=== PATIENT | female | born 1945 | race Caucasian/White ===

== ENCOUNTER 2019-07-16 18:44 | Inpatient (IN) ==
--- NOTE | 2019-07-16 20:54 | Gastroenterology Consult Note ---
Date of Encounter: 07/16/19 Time of Encounter: 20:30 - Assessment and plan (1) Dysphagia Current Visit: Yes Status: Acute Assessment and plan: For foreign body acted high up in the cervical esophagus per CT scan at [facility]. I requested Ear, Nose and Throat surgery to be available at the time of endoscopy and this was arranged. This will be done under general anesthesia. The patient is anticoagulated with dual antiplatelets - Aspirin and Plavix which will add a significant risk of bleeding. Qualifiers: Dysphagia type: oropharyngeal phase Qualified Code(s): R13.12 - Dysphagia, oropharyngeal phase (2) UTI (urinary tract infection) Current Visit: No Status: Acute Qualifiers: Urinary tract infection type: catheter-associated UTI Indwelling urinary catheter type: unspecified Encounter type: initial encounter Qualified Code(s): T83.511A - Infection and inflammatory reaction due to indwelling urethral catheter, initial encounter; N39.0 - Urinary tract infection, site not specified (3) CHF (congestive heart failure) Current Visit: No Status: Chronic Qualifiers: Heart failure type: unspecified Heart failure chronicity: unspecified Qualified Code(s): I50.9 - Heart failure, unspecified (4) Diabetes Current Visit: No Status: Chronic Qualifiers: Diabetes mellitus type: type 2 Diabetes mellitus mcc insulin use: without mcc use Diabetes mellitus complication detail: with chronic kidney disease Chronic kidney disease stage: unspecified stage Qualified Code(s): E11.22 - Type 2 diabetes mellitus with diabetic chronic kidney disease (5) HTN (hypertension), benign Current Visit: No Status: Chronic (6) History of CVA (cerebrovascular accident) Current Visit: No Status: Chronic - Time Spent With Patient Total time spent is greater than 50% in coordination of care (as documented) at patient's floor/unit and/or counseling patient: Greater than 35 minutes GI History of Present Illness - Data of Consult Consult date: 07/16/19 Requesting Physician: Fidel Barrios - Consult Narrative Reason for consult: Acute dysphagia, foreign body in cervical esophagus History of present illness: Ms. Penny is a 73 year old female was transferred from [facility] this evening with acute dysphagia secondary to a foreign body high up in the cervical esophagus just below the cricoid cartilage level as seen on CT scan done at that hospital. Patient was in your patient's been complaining of some degree of dysphagia for the past several months but has never had an endoscopy to date and she had a stroke about 3 years ago with him with with weakness of her right side and right upper extremity and right lower extremity. She has been anticoagulated with a combination of Plavix and aspirin since she had a stent placed several years ago. His history of syncope or chest pain or shortness of breath at this time is no history of any melena or hematochezia K0 or hematemesis her son Travis Sandoval [phone] apparently is unaware that patient hospital I tried to contact him but events with a voicemail is apparently at at work according to his mother. Left a message for him to call me through the paging service Patient's past surgical history significant for from cholecystectomy and appendicectomy and a hysterectomy some years ago this study was for dysfunctional uterine bleeding apparently. She also has a a mildly protuberant umbilicus when asked about her liver she did not have much to say except that she told everything was okay. Past Med Surg Social Fam HX - Past Medical History Medical history: asthma, CHF, COPD, CVA, diabetes, hyperlipidemia, hypertension - Past Surgical History Surgical History: non-contributory - Social History Smoking Status: Former smoker Packs per day: 2 ppd till 20 years ago Smokeless Tobacco Status: No Alcohol use: none Drug use: none Occupational status: retired Current living situation: Home - Independent Recent Out of Country Travel Within the Last 8 Weeks: No Exposure or Possible Exposure to Illness During Travel: No - Gastrointestinal NSAID use: Yes Aspirin 81 mg daily Anticoagulation Use: Yes Plavix and Aspirin Additional Comments: Dysphagia - Constitutional Vitals: Temp Pulse Resp BP Pulse Ox 98.1 F 66 15 110/61 98 07/16/19 20:41 07/16/19 20:41 07/16/19 20:41 07/16/19 20:41 07/16/19 20:41 - Head Head exam: Present: atraumatic, normal inspection, normocephalic - Eye Eye exam: Present: EOMI, PERRL - Neck Neck exam general surgery: Present: full ROM, supple, trachea midline - Respiratory Respiratory exam: Present: CTAB - Cardiovascular Cardiovascular exam: Present: +S1, +S2 - GI/Abdominal Additional comments: Portuberant umbilicus - Rectal Rectal exam: Present: deferred - Extremities Exam Additional comments: Weaknessin Right upper and lower extremity Consult Discharge Plan - Plan Referrals: Keyon Arredondo MD [Primary Care Provider] -
--- NOTE | 2019-07-16 22:21 | Anesthesia Evaluation PreOp ---
Date of Encounter: 07/16/19 Time of Encounter: 22:19 - Past History Planned Operation: EGD, Foreign Body Removal Cardiac History: CHF, HTN, Hyperlipidemia, Cardiac Stent Pulmonary History: Former smoker (quit 20 years ago), Asthma, COPD, Snore QUART[employer]ING History: CVA (residual right weakness) Other Medical History: Diabetes Type II, Thyroid, GERD, Other (depression, fibromyalgia) Anesthesia History: No Prior Anesthetic Complications, Past Anesthesia Alcohol Use: none Drug use: none Medications and Allergies Acetaminophen [Non-Aspirin] 650 mg PO Q4H PRN 10/09/18 [History] Albuterol Sulfate [Ventolin Hfa] 2 puff PO Q6H PRN 10/09/18 [History] Aspirin [Adult Aspirin Regimen] 81 mg PO DAILY 10/09/18 [History] Atorvastatin [Lipitor] 40 mg PO HS 10/09/18 [History] Benzocaine/Menthol [Cepacol Sore Throat Lozenge] 1 lozenge PO Q4H PRN 10/09/18 [History] Citalopram Hydrobromide [Citalopram HBr] 20 mg PO DAILY 10/09/18 [History] Clopidogrel [Plavix] 75 mg PO DAILY 10/09/18 [History] Docusate [Colace] 100 mg PO DAILY 10/09/18 [History] Ezetimibe [Zetia] 10 mg PO DAILY 10/09/18 [History] Magnesium Hydroxide [Milk of Magnesia] 30 ml PO DAILY PRN 10/09/18 [History] Mometasone Furoate [Elocon] 1 appl TP BID PRN 10/09/18 [History] Na Phos,M-B/Na Phos,Di-Ba [Fleet Enema Extra] 230 ml RC ONCE PRN 10/09/18 [History] Tizanidine HCl 4 mg PO Q8H PRN 10/09/18 [History] cloNIDine HCl [Clonidine HCl] 0.2 mg PO BID 10/09/18 [History] diphenhydrAMINE HCl [Sleep Aid] 25 mg PO HS 10/09/18 [History] diphenhydrAMINE HCl [Sleep Aid] 25 mg PO Q4H PRN 10/09/18 [History] raNITIdine HCl [Zantac 75] 75 mg PO BID 10/09/18 [History] Triamcinolone Acet 0.1% OINT [Kenalog] 1 appl TP TID PRN tube 10/11/18 [Rx] Allergy/AdvReac Type Severity Reaction Status Date / Time oxycodone [Oxycodone] Allergy Itching Verified 04/24/19 15:53 Sulfa (Sulfonamide Allergy Itching Verified 04/24/19 15:53 Antibiotics) - Meds/Allergy Pre-op Review Medications Reviewed: Yes Allergies Reviewed: Yes Beta Blockers on Current Med List: No Anesthesia Results - Labs 07/16/2019 from Tomasa Zamarripa Na 137 K 4.6 BUN 22 Cr 1.28 WBC 23.5 Hgb 8.6 Hct 29.1 Plt 459 - Imaging EKG: report reviewed (04/24/2019 SINUS RHYTHM RIGHT BUNDLE BRANCH BLOCK [120+ ms QRS DURATION, UPRIGHT V1, 40+ ms S IN I/aVL/V4/V5/V6]) Anesthesia Exam Vital Signs/O2 Sat/Glucose, Most Recent Temp Pulse Resp BP Pulse Ox 98.1 F 67 18 128/84 100 07/16/19 20:41 07/16/19 21:25 07/16/19 21:25 07/16/19 21:25 07/16/19 21:25 Blood Glucose* 127 Height: 5'2''/1.57m Weight: 212 lbs/96.6 kg NPO (# of Hours): 8 Pain Scale: 0 Pain Scale Used: Numeric (1 - 10) - HEENT Pupil (Motor): EOMI Mallampati: II Teeth: Edentulous Oral Opening: Greater than 3 - QU[employer]Z [employer]ING LOC: Oriented QU[employer]ING Motor: Normal LUE, Normal LLE, Normal Face, Deficit RUE, Deficit RLE [employer]ING Sensory: Normal: RUE, LUE, RLE, LLE, Face - Cardiac Rhythm: Regular Murmur: Systolic - Pulmonary Breath Sounds: bilateral Clear Respiratory Effort: Symmetrical Anesthesia Assess/Plan ASA Score: 4 Level of consciousness: Cooperative, Oriented, Tranquil Anesthetic Plan: General Monitoring Plan: Standard Monitors Recovery Plan: PACU
[2019-07-16] MEDS ORDERED: Naloxone 0.4 MG/ML INJ IVP PRN (22:54)
[2019-07-16] MEDS ORDERED: *HR* Succinylcholine 200 MG/10 ML VIAL IVP ONE (23:07)
[2019-07-16] MEDS ORDERED: Lidocaine -MPF 2% 2 ML VIAL ONE (23:07)
[2019-07-16] MEDS ORDERED: *HR* Etomidate 40 MG/20 ML VIAL IVP ONE (23:07)
[2019-07-16] MEDS ORDERED: *HR* FentaNYL (PF) 100 MCG/2 ML VIAL ONE (23:07)
[2019-07-16] MEDS ORDERED: *HR* PHENYLEPHRINE 1,000 MCG/10 ML SYRINGE IVP ONE (23:10)
[2019-07-16] MEDS ORDERED: 0.9 % Sodium Chloride 1,000 ML IVC SCH (23:15)
--- NOTE | 2019-07-16 23:18 | Internal Med History&Physical ---
Date of Encounter: 07/16/19 Time of Encounter: 23:14 Internal Medicine - H&P: HPI Chief complaint: Dysphagia History of present illness: Ms. Penny is a 73 year old female with a past medical history of COPD on 3 L nasal cannula, hypertension, CHF, type 2 diabetes and history of CVA with residual right-sided deficits who initially presented to [facility] due to concern of food stuck in her throat. Patient states that around lunch she was eating a potato, took a large bright which felt like it got stuck in her throat. Patient reports prior history to of dysphagia following her stroke 2 years ago. She says that she has had a swallow evaluation done and was placed on nectar thickened liquids but could not tolerate certain liquids and this form, especially coffee. Patient currently denies any chest pain, shortness of breath, nausea or vomiting. No reports of fever, cough or chills. On arrival patient was afebrile, hemodynamically stable saturating 100% on 3 L. Did not appear to be in any acute distress. No evidence of stridor on examination. Laboratory workup notable for a leukocytosis of 18 and anemia which appears to be chronic. CT of the soft tissues of the neck performed at [facility] concerning for findings of food impaction within the esophagus and trachea. Dr. Rowland was at bedside during my assessment. He plans to take the patient down for endoscopy tonight with coordination with ENT and pulmonology. Past Med Surg Social Fam HX - Past Medical History Medical history: asthma, CHF, COPD, CVA, diabetes, hyperlipidemia, hypertension - Past Surgical History Surgical History: non-contributory - Social History Smoking Status: Former smoker Packs per day: 2 ppd till 20 years ago Smokeless Tobacco Status: No Alcohol use: none Drug use: none - Family History Mother Hx Family Cancer: Yes (stomach, liver, pancreas) Father Hx Family Cardiac Disorders: Yes (heart failure) Sister Hx Family Cancer: Yes (lung) Brother Hx Family Cancer: Yes (lung) Internal Medicine - H&P: Meds Acetaminophen [Non-Aspirin] 650 mg PO Q4H PRN 10/09/18 [History] Albuterol Sulfate [Ventolin Hfa] 2 puff PO Q6H PRN 10/09/18 [History] Atorvastatin [Lipitor] 40 mg PO 199910/09/18 [History] Citalopram Hydrobromide [Citalopram HBr] 20 mg PO 0800 10/09/18 [History] Clopidogrel [Plavix] 75 mg PO 0800 10/09/18 [History] Docusate [Colace] 100 mg PO 0800 10/09/18 [History] Ezetimibe [Zetia] 10 mg PO 0800 10/09/18 [History] Mometasone Furoate [Elocon] 1 appl TP BID PRN 10/09/18 [History] Tizanidine HCl 4 mg PO Q8H PRN 10/09/18 [History] cloNIDine HCl [Clonidine HCl] 0.2 mg PO 0800,199910/09/18 [History] diphenhydrAMINE HCl [Sleep Aid] 25 mg PO Q6H PRN 10/09/18 [History] ALPRAZolam [Xanax 0.25 MG Tablet] 0.25 mg PO 0800,199907/17/19 [History] Ascorbate Calcium [Vitamin C] 500 mg PO 0800,1700 07/17/19 [History] Furosemide [Lasix] 20 mg PO 0800 07/17/19 [History] Insulin Glargine,Hum.rec.anlog [Basaglar Kwikpen U-100] 20 unit SQ BID 07/17/19 [History] Insulin LISPRO [HumaLOG] 0 - 12 unit SQ ACHS 07/17/19 [History] Ipratropium/Albuterol Sulfate [Iprat-Albut 0.5-3(2.5) mg/3 ml] 3 ml IH 0800,1200,199907/17/19 [History] Ipratropium/Albuterol Sulfate [Iprat-Albut 0.5-3(2.5) mg/3 ml] 3 ml IH BID PRN 07/17/19 [History] Levocetirizine Dihydrochloride [Allergy Relief (Xyzal)] 2.5 mg PO 0800 07/17/19 [History] Levothyroxine Sodium 125 mcg PO 0607/17/19 [History] Lisinopril [Zestril] 20 mg PO 0800,199907/17/19 [History] Melatonin 5 mg PO 199907/17/19 [History] NIFEdipine XL (24 HR) [Procardia XL] 30 mg PO 0800 07/17/19 [History] Nitroglycerin [Nitrostat] 0.4 mg SL AD PRN 07/17/19 [History] Ondansetron HCl [Zofran] 4 mg PO Q6H PRN 07/17/19 [History] Oxybutynin Chloride [Oxybutynin Chloride ER] 10 mg PO 0800 07/17/19 [History] Polyethylene Glycol 3350 [MiraLAX] 17 gm PO 0807/17/19 [History] Polyvinyl Alcohol [Artificial Tears] 2 drop OP 0800,199907/17/19 [History] Potassium Chloride [Klor-Con 10] 10 meq PO Q48H 07/17/19 [History] Pregabalin [Lyrica] 25 mg PO 0800,199907/17/19 [History] Ranitidine HCl [Acid Proc Tech] 150 mg PO 0800,199907/17/19 [History] Sennosides/Docusate Sodium [Senna-S Tablet] 1 tab PO 08,199907/17/19 [History] Thiamine (B-1) [Vitamin B-1] 100 mg PO 0800 07/17/19 [History] hydrALAZINE [HydrALAZINE] 10 mg PO 0800,1200,1600 07/17/19 [History] Allergy/AdvReac Type Severity Reaction Status Date / Time oxycodone [Oxycodone] Allergy Itching Verified 04/24/19 15:53 Sulfa (Sulfonamide Allergy Itching Verified 04/24/19 15:53 Antibiotics) All Systems PM: A 10-system review of systems was performed and is negative for pertinent findings except as documented above in the HPI. - Constitutional Constitutional: no chills, no fever(s), no night sweats - EENT Eyes: no change in vision, no discharge, no pain, no photophobia Ears: no ear discharge, no ear pain, no tinnitus Nose, mouth and throat: no dysphagia, no nasal discharge, no neck pain, no sore throat - Cardiovascular Cardiovascular ROS IM: no chest pain, no diaphoresis, no dyspnea, no lightheadedness, no palpitations, no syncope - Respiratory Respiratory: no cough, no dyspnea, no wheezing, no excessive phlegm production - Gastrointestinal Gastrointestinal: no abdominal pain, no diarrhea, no hematemesis, no hematochezia, no melena, no nausea, no vomiting - Genitourinary Genitourinary: no change in urinary stream, no dysuria, no flank pain, no hematuria - Musculoskeletal Musculoskeletal ROS IM: no numbness, no tingling - Integumentary Integumentary IM: no rash, no unusual bruising - Neurological Neurological ROS: no confusion, no convulsions, no focal weakness, no numbness, no tingling, no tremor(s) - Hematologic/Lymphatic Hematologic/Lymphatic: no easy bruising - Constitutional Vitals: Temp Pulse Resp BP Pulse Ox 98.1 F 67 18 128/84 100 07/16/19 20:41 07/16/19 21:25 07/16/19 21:25 07/16/19 21:25 07/16/19 21:25 Exam: General: Alert and oriented 3 Skin:Normal color, no rash, no lesions. HEENT:EOM, pupils equal, round and reactive. Cardiovascular:Normal S1 & S2, no rubs, murmurs or gallops. No JVD. Pulse regular. Lungs:Normal breath sounds, no wheezes or crackles. Abdomen:Soft, non-tender, no rigidity. Extremities:No deformity, no edema or tenderness, no joint swelling or clubbing. Neurological:Normal cognition and motor skills. 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 Rest of the physical exam is non contributory Internal Med - H&P Results - Labs CBC & Chem 7: 07/17/19 01:24 07/17/19 01:24 - Assessment and Plan (1) Dysphagia Current Visit: Yes Status: Acute Assessment and plan: 73-year-old female with a past medical history significant for CVA with residual dysphasia and flaccid paralysis of the right upper lower extremity presenting with earlier episode of dysphagia while attempting to consume a potato. Patient reports she is on a nectar thick diet but has not been compliant with it. On my assessment patient was stable. No evidence of stridor on physical exam. CT of the soft tissues of the neck performed at [facility] concerning for findings of food impaction within the esophagus and trachea. Case was discussed with Dr. Rowland at bedside who will take patient now for endoscopy. -Follow GI recommendations Qualifiers: Dysphagia type: oropharyngeal phase Qualified Code(s): R13.12 - Dysphagia, oropharyngeal phase (2) Aspiration into airway Current Visit: Yes Status: Ruled-out Assessment and plan: CT of the soft tissues of the neck performed at [facility] concerning for aspiration of food into the trachea. Dr. Rowland to coordinate further intervention with ENT and possibly pulmonology for bronchoscopy. Patient otherwise is stable from a respiratory standpoint. No evidence of stridor on physical examination Qualifiers: Encounter type: initial encounter Qualified Code(s): T17.908A - Unspecified foreign body in respiratory tract, part unspecified causing other injury, initial encounter (3) Diabetes Current Visit: No Status: Chronic Assessment and plan: Blood glucose 127 on arrival. -Continue Accu-Cheks every 6 hours -Sliding scale insulin. Qualifiers: Diabetes mellitus type: type 2 Diabetes mellitus fci insulin use: without fci use Diabetes mellitus complication detail: with chronic kidney disease Chronic kidney disease stage: unspecified stage Qualified Code(s): E11.22 - Type 2 diabetes mellitus with diabetic chronic kidney disease (4) History of CVA (cerebrovascular accident) Current Visit: No Status: Chronic Assessment and plan: History of right-sided CVA approximately 2 years ago with residual right-sided flaccid paralysis of the upper and lower extremities. There is likely associated dysphagia as well. (5) CHF (congestive heart failure) Current Visit: No Status: Chronic Assessment and plan: No evidence of an acute exacerbation. -Resume home meds. Qualifiers: Heart failure type: unspecified Heart failure chronicity: unspecified Qualified Code(s): I50.9 - Heart failure, unspecified (6) HTN (hypertension), benign Current Visit: No Status: Chronic (7) Hypothyroid Current Visit: No Status: Chronic Qualifiers: Hypothyroidism type: unspecified Qualified Code(s): E03.9 - Hypothyroidism, unspecified (8) DVT prophylaxis Current Visit: No Status: Chronic Assessment and plan: Subcutaneous heparin - Time Spent With Patient Total time spent is greater than 50% in coordination of care (as documented) at patient's floor/unit and/or counseling patient:
[2019-07-16] MEDS ORDERED: Dextrose Gel 15 GM/37.5 ML TUBE PO PRN ×2 (23:25)
[2019-07-16] MEDS ORDERED: D5% in Water 1,000 ML IVC PRN (23:25)
[2019-07-16] MEDS ORDERED: *HR* Dextrose 50 % in Water (Syg) 50 ML SYRINGE IVP PRN (23:25)
--- NOTE | 2019-07-17 00:29 | Anesthesia Evaluation Post Op ---
Date of Encounter: 07/17/19 Time of Encounter: 00:28 - Vital Signs Vital Signs: Vital Signs/O2 Sat, Most Current Temp Pulse Resp BP Pulse Ox 99.5 F 92 22 151/58 97 07/17/19 00:07/17/19 00:07/17/19 00:07/17/19 00:07/17/19 00:17 - Lungs Lungs: Clear Ascult./Percussion - Airway Airway: Non-obstructed - Cardiovascular Regular Rate - Mental Status Mental Status: Alert & Oriented, Answers Appropriately - Pain Pain Scale: 0 Pain Scale used: Numeric (1 - 10) - Nausea Vomiting Nausea Vomiting: Not Present - Hydration Hydration: NPO, Gutierrez catheter - Discharge PostOp Status: Transfer Patient to floor
[2019-07-17] MEDS: *HR* Heparin 5,000 UNIT/ML VIAL SQ SCH ×3 (00:52→17:08)
[2019-07-17] MEDS: Insulin LISPRO 300 UNITS/3 ML VIAL SQ SCH ×5 (00:54→20:13)
[2019-07-17 02:23] LABS: Basophils # 0.1 K/mcL (0.0-0.2); Basophils % 0.3 %; Eosinophils # 1.2 K/mcL (0.0-0.6); Eosinophils % 6.2 %; Hematocrit 31.9 % (35.3-44.9); Hemoglobin 9.3 g/dL (11.5-15.4); Immature Granulocytes % 0.7 % (0-4); Lymphocytes # 5.6 K/mcL (0.6-4.6); Lymphocytes % 30.1 %; Mean Corpuscular HGB Conc 29.2 g/dL (31.6-35.5); Mean Corpuscular Hemoglobin 27.9 pg (28.0-33.3); Mean Corpuscular Volume 95.8 fL (83.0-100.0); Mean Platelet Volume 8.6 fL (9.4-12.4); Monocytes # 1.7 K/mcL (0.0-1.3); Platelet Count 531 K/mcL (140-400); Red Blood Count 3.33 M/mcL (3.82-4.97); Red Cell Distribution Width 14.5 % (11.5-14.5); Segmented Neutrophils % 53.7 %; White Blood Count 18.7 K/mcL (4.3-11.1)
[2019-07-17 02:28] LABS: Prothrombin Time 11.9 Seconds (9.4-12.1)
[2019-07-17 02:31] LABS: Activated Partial Thrombo Time 30.5 Seconds (26.0-36.0)
[2019-07-17 02:45] LABS: Alanine Aminotransferase 9 Units/L (7-52); Albumin 3.2 g/dL (3.5-5.7); Albumin/Globulin Ratio 0.9 (1.1-2.2); Alkaline Phosphatase 88 Units/L (34-104); Aspartate Amino Transferase 13 Units/L (13-39); BUN/Creatinine Ratio 21 (6-26); Bilirubin,Total 0.3 mg/dL (0.3-1.0); Blood Urea Nitrogen 19 mg/dL (8-23); Carbon Dioxide 28 mEq/L (23-29); Chloride 101 mEq/L (98-107); Globulin 3.6 g/dL (2.4-3.5); Glucose 100 mg/dL (70-105); Magnesium 2.2 mg/dL (1.6-2.6); Osmolality,Calculated 286 (280-300); Potassium 4.5 mEq/L (3.5-5.1); Sodium 137 mEq/L (136-145); Total Protein 6.8 g/dL (6.4-8.9); eGFR For African Americans > 60 (> 60); eGFR For Non-African Americans > 60 (> 60)
[2019-07-17] MEDS ORDERED: *HR* Dextrose 50 % in Water (Syg) 50 ML SYRINGE IVP PRN (08:00)
[2019-07-17] MEDS ORDERED: D5% in Water 1,000 ML IVC PRN (08:00)
[2019-07-17] MEDS ORDERED: Dextrose Gel 15 GM/37.5 ML TUBE PO PRN ×2 (08:00)
--- NOTE | 2019-07-17 08:07 | Event Note ---
Date of Encounter: 07/17/19 Time of Encounter: 07:00 Reassessed patient this morning status post endoscopy with removal of food impaction within the proximal esophagus. Patient reporting to be feeling better. Per Dr. Rowland's note, arrangement for ENT to be available during endoscopy was noted in his note. It is unclear if ENT was present during endoscopy as there is no ENT note available. Dr. De La Garza was contacted by pulmonology this morning to determine if bronchoscopy was still needed. We decided to obtain a repeat CT scan of the soft tissues of the neck to determine if there is any further evidence of food within the trachea. Stat CT was ordered. We will await results. Please communicate findings with pulmonology to determine need for bronchoscopy.
[2019-07-17 08:31] LABS: % Iron Saturation 28 % (15-50); Iron 71 mcg/dL (50-170); Transferrin 178 mg/dL (203-362)
[2019-07-17 08:50] LABS: Ferritin 60 ng/mL (10-120)
--- NOTE | 2019-07-17 11:29 | Internal Med Progress Note ---
Hospitalist Progress Note - Encounter Date of Encounter: 07/17/19 Time of Encounter: 11:25 - Subjective Interval History: Ms. Penny is a 73 year old female with a past medical history of COPD on 3 L nasal cannula, hypertension, CHF, type 2 diabetes and history of CVA with residual right-sided deficits who initially presented to [facility] due to concern of food stuck in her throat. Patient states that around lunch she was eating a potato, took a large bright which felt like it got stuck in her throat. Patient reports prior history to of dysphagia following her stroke 2 years ago. She says that she has had a swallow evaluation done and was placed on nectar thickened liquids but could not tolerate certain liquids and this form, especially coffee. Laboratory workup notable for a leukocytosis of 18 and anemia which appears to be chronic. CT of the soft tissues of the neck performed at [facility] concerning for findings of food impaction within the esophagus and trachea. EGD was performed on 07/16 which revealed a benign circular esophageal stenosis, and mild gastritis. A neck soft tissue CT was repeated after the procedure which redemonstrated food impaction within the proximal part of the esophagus. GI was called, plan to do dilation in the morning. Patient seen and examined in the room. She reported absence of aspiration, ches t pain, cough, or shortness of breath. She has been tolerating mechanical soft diet. - Exam Vitals: Temp Pulse Resp BP Pulse Ox 99.0 F 101 18 125/61 98 07/17/19 07:07 07/17/19 07:07 07/17/19 07:07 07/17/19 07:07 07/17/19 07:07 Exam: General: Alert and oriented 3 Skin:Normal color, no rash, no lesions. HEENT:EOM, pupils equal, round and reactive. Cardiovascular:Normal S1 & S2, no rubs, murmurs or gallops. No JVD. Pulse regular. Lungs:Normal breath sounds, no wheezes or crackles. Abdomen:Soft, non-tender, no rigidity. Extremities:No deformity, no edema or tenderness, no joint swelling or clubbing. Neurological:Normal cognition and motor skills. 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 Rest of the physical exam is non contributory - Assessment and Plan (1) Dysphagia Current Visit: Yes Status: Acute Assessment and Plan: CT of the neck showed food impaction has a proximal part of the esophagus. Patient had EGD on 07/16 which showed vesicular benign stenosis of the esophagus, mild gastritis. Repeat CT of neck soft tissue after the procedure showed remaining food impaction. GI was called to this morning, plan to do a dilation in the morning. She was recently had a barium swallow evaluation which showed no risk of aspiration. Iron studies showed a normal iron level and ferritin,, Viktoriya -Jonas disease was less likely , neither is [place]. We will continue pureed diet, nothing by mouth after midnight for esophageal dilation in the morning. (2) History of CVA (cerebrovascular accident) Current Visit: No Status: Chronic Assessment and Plan: No evidence of new CVA, continue aspirin after GI procedures. (3) Hypothyroid Current Visit: No Status: Chronic Assessment and Plan: Continue home medication. (4) HTN (hypertension), benign Current Visit: No Status: Chronic Assessment and Plan: BP controlled, continue home medication. (5) Diabetes Current Visit: No Status: Chronic Assessment and Plan: Continue insulin sliding scale. (6) DVT prophylaxis Current Visit: No Status: Chronic Assessment and Plan: Subcutaneous heparin (7) CHF (congestive heart failure) Current Visit: No Status: Chronic Assessment and Plan: No evidence of an acute exacerbation. -Resume home meds. (8) Aspiration into airway Current Visit: Yes Status: Ruled-out - Time Spent with Patient Total time spent is greater than 50% in coordination of care (as documented) at patient's floor/unit and/or counseling patient: Greater than 35 minutes Plan of Care Discussed with: patient Internal Medicine: Result - Labs CBC & Chem 7: 07/17/19 01:24 07/17/19 01:24 Labs: Short CBC 07/17/19 Range/Units 01:24 WBC 18.7 H (4.3-11.1) K/mcL Hgb 9.3 L (11.5-15.4) g/dL Hct 31.9 L (35.3-44.9) % Plt Count 531 H (140-400) K/mcL Neutrophils # 10.0 H (1.6-8.9) K/mcL BMP 07/17/19 01:24 Sodium 137 Potassium 4.5 Chloride 101 Carbon Dioxide 28 BUN 19 Creatinine 0.91 Glucose 100 Calcium 9.0 Liver Function 07/17/19 Range/Units 01:24 Total Bilirubin 0.3 (0.3-1.0) mg/dL AST 13 (13-39) Units/L ALT 9 (7-52) Units/L Alkaline Phosphatase 88 (34-104) Units/L Albumin 3.2 L (3.5-5.7) g/dL - ABG Interpretation ABG results: PT/INR, D-dimer PT 11.9 Seconds (9.4-12.1) 07/17/19 01:24 - Impressions Impressions Soft Tissue Neck CT 07/17/19 07:23 IMPRESSION: Persistent soft tissue density within the esophagus at the cervicothoracic junction, with thickening of the more inferior and adjacent tracheal wall. Debris within the more distal esophagus within the proximal thoracic esophagus. No evidence of soft tissue gas to suggest perforation. No evidence of mediastinal air. Recommend GI consultation for potential upper endoscopy to exclude pathology in this region. This could represent persistent food, although this is indeterminate by noncontrast imaging. Few scattered ground-glass pulmonary opacities with pulmonary nodules within upper lungs are nonspecific. This may be seen in setting of atypical infection, or small volume aspiration. Nonspecific opacification of right mastoid air cells and right middle ear. Correlate with clinical concern of right otomastoiditis and right middle ear infection. RECOMMENDATIONS: GI consultation for potential upper endoscopy. D/ / 07/17/2019 10:17:46 Noah Low MD / earnold Interpreting Provider: Noah Low MD Consult Discharge Plan - Plan Referrals: Keyon Arredondo MD [Primary Care Provider] - (1) Dysphagia Qualifiers: Dysphagia type: oropharyngeal phase Qualified Code(s): R13.12 - Dysphagia, oropharyngeal phase (3) Hypothyroid Qualifiers: Hypothyroidism type: unspecified Qualified Code(s): E03.9 - Hypothyroidism, unspecified (5) Diabetes Qualifiers: Diabetes mellitus type: type 2 Diabetes mellitus usp insulin use: without ad terminal makeup operator use Diabetes mellitus complication detail: with chronic kidney disease Chronic kidney disease stage: unspecified stage (7) CHF (congestive heart failure) Qualifiers: Heart failure type: unspecified Heart failure chronicity: unspecified Qualified Code(s): I50.9 - Heart failure, unspecified
[2019-07-17] MEDS: Ondansetron 4 MG/2 ML VIAL IVP PRN (20:14)
[2019-07-18] MEDS: *HR* Heparin 5,000 UNIT/ML VIAL SQ SCH ×4 (01:02→22:49)
[2019-07-18] MEDS ORDERED: tiZANidine 4 MG TABLET PO PRN (01:12)
[2019-07-18 06:09] LABS: Basophils # 0.1 K/mcL (0.0-0.2); Basophils % 0.4 %; Eosinophils # 0.4 K/mcL (0.0-0.6); Eosinophils % 2.8 %; Hematocrit 31.7 % (35.3-44.9); Hemoglobin 9.2 g/dL (11.5-15.4); Lymphocytes # 5.1 K/mcL (0.6-4.6); Lymphocytes % 32.8 %; Mean Corpuscular Hemoglobin 27.9 pg (28.0-33.3); Mean Corpuscular Volume 96.1 fL (83.0-100.0); Mean Platelet Volume 8.7 fL (9.4-12.4); Monocytes # 1.7 K/mcL (0.0-1.3); Monocytes % 11.2 %; Platelet Count 576 K/mcL (140-400); Red Cell Distribution Width 14.5 % (11.5-14.5); Segmented Neutrophils % 51.8 %; White Blood Count 15.5 K/mcL (4.3-11.1)
[2019-07-18] MEDS: Insulin LISPRO 300 UNITS/3 ML VIAL SQ SCH ×4 (07:39→20:01)
[2019-07-18] MEDS: Ondansetron 4 MG/2 ML VIAL IVP PRN (07:46)
[2019-07-18] MEDS ORDERED: Ipratropium/Albuterol Neb 3 ML IH PRN (09:18)
[2019-07-18 09:40] LABS: BUN/Creatinine Ratio 18 (6-26); Blood Urea Nitrogen 16 mg/dL (8-23); Calcium 8.9 mg/dL (8.6-10.3); Carbon Dioxide 28 mEq/L (23-29); Chloride 102 mEq/L (98-107); Glucose 181 mg/dL (70-105); Osmolality,Calculated 292 (280-300); Potassium 4.9 mEq/L (3.5-5.1); Sodium 138 mEq/L (136-145); eGFR For African Americans > 60 (> 60); eGFR For Non-African Americans > 60 (> 60)
--- NOTE | 2019-07-18 10:19 | Internal Med Progress Note ---
Hospitalist Progress Note - Encounter Date of Encounter: 07/18/19 Time of Encounter: 10:18 - Subjective Interval History: Ms. Penny is a 73 year old female with a past medical history of COPD on 3 L nasal cannula, hypertension, CHF, type 2 diabetes and history of CVA with residual right-sided deficits who initially presented to [facility] due to concern of food stuck in her throat. Patient states that around lunch she was eating a potato, took a large bright which felt like it got stuck in her throat. Patient reports prior history to of dysphagia following her stroke 2 years ago. She says that she has had a swallow evaluation done and was placed on nectar thickened liquids but could not tolerate certain liquids and this form, especially coffee. Laboratory workup notable for a leukocytosis of 18 and anemia which appears to be chronic. CT of the soft tissues of the neck performed at [facility] concerning for findings of food impaction within the esophagus and trachea. EGD was performed on 07/16 which revealed a benign circular esophageal stenosis, and mild gastritis. A neck soft tissue CT was repeated after the procedure which redemonstrated food impaction within the proximal part of the esophagus. GI was called, plan to do dilation today. Patient seen and examined in the room. She reported absence of aspiration, chest pain, cough, or shortness of breath. Reported feeling food stuck in the throat. - Exam Vitals: Temp Pulse Resp BP Pulse Ox 98.4 F 109 16 148/75 100 07/18/19 06:35 07/18/19 06:35 07/18/19 06:35 07/18/19 06:35 07/18/19 06:35 Exam: General: Alert and oriented 3 Skin:Normal color, no rash, no lesions. HEENT:EOM, pupils equal, round and reactive. Cardiovascular:Normal S1 & S2, no rubs, murmurs or gallops. No JVD. Pulse regular. Lungs:Normal breath sounds, no wheezes or crackles. Abdomen:Soft, non-tender, no rigidity. Extremities:No deformity, no edema or tenderness, no joint swelling or clubbing. Neurological:Normal cognition and motor skills. 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 Rest of the physical exam is non contributory - Assessment and Plan (1) Dysphagia Current Visit: Yes Status: Acute Assessment and Plan: 73-year-old female with a past medical history significant for CVA with residual dysphasia and flaccid paralysis of the right upper lower extremity presenting with earlier episode of dysphagia while attempting to consume a potato. Patient reports she is on a nectar thick diet but has not been compliant with it. EGD was performed on 07/16 which showed circular esophageal stenosis and mild gastritis. After the procedure, a repeat CT of neck soft tissue redemonstrated food impaction in the proximal part of the esophagus. GI was called and planed for esophageal dilation this morning. (2) History of CVA (cerebrovascular accident) Current Visit: No Status: Chronic Assessment and Plan: History of right-sided CVA approximately 2 years ago with residual right-sided flaccid paralysis of the upper and lower extremities. There is likely associated dysphagia as well. (3) Hypothyroid Current Visit: No Status: Chronic Assessment and Plan: Continue home medication. (4) HTN (hypertension), benign Current Visit: No Status: Chronic Assessment and Plan: BP controlled, continue home medication. (5) Diabetes Current Visit: No Status: Chronic Assessment and Plan: Recent 04/2019 A1c 8.0. On basal and bolus insulin at home. Continue basal insulin at home dose. Continue insulin sliding (6) DVT prophylaxis Current Visit: No Status: Chronic Assessment and Plan: Subcutaneous heparin. (7) CHF (congestive heart failure) Current Visit: No Status: Chronic Assessment and Plan: No evidence of an acute exacerbation. -Resume home meds. (8) Aspiration into airway Current Visit: Yes Status: Ruled-out DVT Prophylaxis: SCDs. - Time Spent with Patient Total time spent is greater than 50% in coordination of care (as documented) at patient's floor/unit and/or counseling patient: Greater than 35 minutes Plan of Care Discussed with: patient Internal Medicine: Result - Labs CBC & Chem 7: 07/18/19 04:16 07/18/19 09:04 Labs: Short CBC 07/18/19 Range/Units 04:16 WBC 15.5 H (4.3-11.1) K/mcL Hgb 9.2 L (11.5-15.4) g/dL Hct 31.7 L (35.3-44.9) % Plt Count 576 H (140-400) K/mcL Neutrophils # 8.0 (1.6-8.9) K/mcL BMP 07/18/19 09:04 Sodium 138 Potassium 4.9 Chloride 102 Carbon Dioxide 28 BUN 16 Creatinine 0.91 Glucose 181 H Calcium 8.9 - ABG Interpretation ABG results: PT/INR, D-dimer PT 11.9 Seconds (9.4-12.1) 07/17/19 01:24 - Impressions Impressions Soft Tissue Neck CT 07/17/19 07:23 IMPRESSION: Persistent soft tissue density within the esophagus at the cervicothoracic junction, with thickening of the more inferior and adjacent tracheal wall. Debris within the more distal esophagus within the proximal thoracic esophagus. No evidence of soft tissue gas to suggest perforation. No evidence of mediastinal air. Recommend GI consultation for potential upper endoscopy to exclude pathology in this region. This could represent persistent food, although this is indeterminate by noncontrast imaging. Few scattered ground-glass pulmonary opacities with pulmonary nodules within upper lungs are nonspecific. This may be seen in setting of atypical infection, or small volume aspiration. Nonspecific opacification of right mastoid air cells and right middle ear. Correlate with clinical concern of right otomastoiditis and right middle ear infection. RECOMMENDATIONS: GI consultation for potential upper endoscopy. D/ / 07/17/2019 10:17:46 Noah Low MD / earnold Interpreting Provider: Noah Low MD Consult Discharge Plan - Plan Referrals: Keyon Arredondo MD [Primary Care Provider] - (1) Dysphagia Qualifiers: Dysphagia type: oropharyngeal phase Qualified Code(s): R13.12 - Dysphagia, oropharyngeal phase (3) Hypothyroid Qualifiers: Hypothyroidism type: unspecified Qualified Code(s): E03.9 - Hypothyroidism, unspecified (5) Diabetes Qualifiers: Diabetes mellitus type: type 2 Diabetes mellitus senior living insulin use: without truck terminal manager use Diabetes mellitus complication detail: with chronic kidney disease Chronic kidney disease stage: unspecified stage (7) CHF (congestive heart failure) Qualifiers: Heart failure type: unspecified Heart failure chronicity: unspecified Qualified Code(s): I50.9 - Heart failure, unspecified (8) Aspiration into airway Qualifiers: Encounter type: initial encounter Qualified Code(s): T17.908A - Unspecified foreign body in respiratory tract, part unspecified causing other injury, initial encounter
[2019-07-18] MEDS: cloNIDine HCl 0.1 MG TABLET PO SCH ×2 (10:27→20:00)
[2019-07-18] MEDS: Lisinopril 20 MG TABLET PO SCH ×2 (10:28→20:00)
[2019-07-18] MEDS: Furosemide 20 MG TABLET PO SCH (10:28)
[2019-07-18] MEDS: Thiamine (B-1) 100 MG TABLET PO SCH (10:28)
[2019-07-18] MEDS: NIFEdipine XL (24 HR) 30 MG TAB.ER.24 PO SCH (10:28)
[2019-07-18] MEDS: Famotidine 20 MG TABLET PO SCH (10:28)
[2019-07-18] MEDS: Ipratropium/Albuterol Neb 3 ML IH SCH ×2 (10:53→15:22)
[2019-07-18] MEDS ORDERED: Metoclopramide 10 MG/2 ML VIAL IVP ONE (12:06)
[2019-07-18] MEDS: hydrALAZINE 10 MG TABLET PO SCH ×2 (12:20→16:04)
[2019-07-18] MEDS ORDERED: *HR* Propofol 200 MG/20 ML VIAL IVP ONE (14:52)
[2019-07-18] MEDS ORDERED: Lidocaine -MPF 2% 2 ML VIAL ONE (15:12)
--- NOTE | 2019-07-18 15:29 | Anesthesia Progress Note ---
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), Other (depression, fibromyalgia, anemia) Anesthesia History: No Prior Anesthetic Complications, Past Anesthesia Alcohol Use: none Drug use: none Medications and Allergies Acetaminophen [Non-Aspirin] 650 mg PO Q4H PRN 10/09/18 [History] Albuterol Sulfate [Ventolin Hfa] 2 puff PO Q6H PRN 10/09/18 [History] Aspirin [Adult Aspirin Regimen] 81 mg PO DAILY 10/09/18 [History] Atorvastatin [Lipitor] 40 mg PO HS 10/09/18 [History] Benzocaine/Menthol [Cepacol Sore Throat Lozenge] 1 lozenge PO Q4H PRN 10/09/18 [History] Citalopram Hydrobromide [Citalopram HBr] 20 mg PO DAILY 10/09/18 [History] Clopidogrel [Plavix] 75 mg PO DAILY 10/09/18 [History] Docusate [Colace] 100 mg PO DAILY 10/09/18 [History] Ezetimibe [Zetia] 10 mg PO DAILY 10/09/18 [History] Magnesium Hydroxide [Milk of Magnesia] 30 ml PO DAILY PRN 10/09/18 [History] Mometasone Furoate [Elocon] 1 appl TP BID PRN 10/09/18 [History] Na Phos,M-B/Na Phos,Di-Ba [Fleet Enema Extra] 230 ml RC ONCE PRN 10/09/18 [History] Tizanidine HCl 4 mg PO Q8H PRN 10/09/18 [History] cloNIDine HCl [Clonidine HCl] 0.2 mg PO BID 10/09/18 [History] diphenhydrAMINE HCl [Sleep Aid] 25 mg PO HS 10/09/18 [History] diphenhydrAMINE HCl [Sleep Aid] 25 mg PO Q4H PRN 10/09/18 [History] raNITIdine HCl [Zantac 75] 75 mg PO BID 10/09/18 [History] Triamcinolone Acet 0.1% OINT [Kenalog] 1 appl TP TID PRN tube 10/11/18 [Rx] Allergy/AdvReac Type Severity Reaction Status Date / Time oxycodone [Oxycodone] Allergy Itching Verified 04/24/19 15:53 Sulfa (Sulfonamide Allergy Itching Verified 04/24/19 15:53 Antibiotics) - Meds/Allergy Pre-op Review Medications Reviewed: Yes Allergies Reviewed: Yes Beta Blockers on Current Med List: No Anesthesia Results - Labs Laboratory Last Values WBC 15.5 K/mcL (4.3-11.1) H 07/18/19 04:16 RBC 3.30 M/mcL (3.82-4.97) L 07/18/19 04:16 Hgb 9.2 g/dL (11.5-15.4) L 07/18/19 04:16 Hct 31.7 % (35.3-44.9) L 07/18/19 04:16 MCV 96.1 fL (83.0-100.0) 07/18/19 04:16 MCH 27.9 pg (28.0-33.3) L 07/18/19 04:16 MCHC 29.0 g/dL (31.6-35.5) L 07/18/19 04:16 RDW 14.5 % (11.5-14.5) 07/18/19 04:16 Plt Count 576 K/mcL (140-400) H 07/18/19 04:16 MPV 8.7 fL (9.4-12.4) L 07/18/19 04:16 Immature Gran % 1.0 % (0-4) 07/18/19 04:16 Seg Neutrophils % 51.8 % 07/18/19 04:16 Lymphocytes % 32.8 % 07/18/19 04:16 Monocytes % 11.2 % 07/18/19 04:16 Eosinophils % 2.8 % 07/18/19 04:16 Basophils % 0.4 % 07/18/19 04:16 Neutrophils # 8.0 K/mcL (1.6-8.9) 07/18/19 04:16 Lymphocytes # 5.1 K/mcL (0.6-4.6) H 07/18/19 04:16 Monocytes # 1.7 K/mcL (0.0-1.3) H 07/18/19 04:16 Eosinophils # 0.4 K/mcL (0.0-0.6) 07/18/19 04:16 Basophils # 0.1 K/mcL (0.0-0.2) 07/18/19 04:16 PT 11.9 Seconds (9.4-12.1) 07/17/19 01:24 INR 1.0 07/17/19 01:24 APTT 30.5 Seconds (26.0-36.0) 07/17/19 01:24 Sodium 138 mEq/L (136-145) 07/18/19 09:04 Potassium 4.9 mEq/L (3.5-5.1) 07/18/19 09:04 Chloride 102 mEq/L (98-107) 07/18/19 09:04 Carbon Dioxide 28 mEq/L (23-29) 07/18/19 09:04 BUN 16 mg/dL (8-23) 07/18/19 09:04 Creatinine 0.91 mg/dL (0.60-1.20) 07/18/19 09:04 Est GFR ( Amer) > 60 (> 60) 07/18/19 09:04 Est GFR (Non-Af Amer) > 60 (> 60) 07/18/19 09:04 BUN/Creatinine Ratio 18 (6-26) 07/18/19 09:04 Glucose 181 mg/dL (70-105) H 07/18/19 09:04 POC Glucose 143 mg/dL (70-99) H 07/18/19 00:01 Calculated Osmolality 292 (280-300) 07/18/19 09:04 Calcium 8.9 mg/dL (8.6-10.3) 07/18/19 09:04 Magnesium 2.2 mg/dL (1.6-2.6) 07/17/19 01:24 Iron 71 mcg/dL (50-170) 07/17/19 01:24 % Saturation 28 % (15-50) 07/17/19 01:24 Transferrin 178 mg/dL (203-362) L 07/17/19 01:24 Ferritin 60 ng/mL (10-120) 07/17/19 01:24 Total Bilirubin 0.3 mg/dL (0.3-1.0) 07/17/19 01:24 AST 13 Units/L (13-39) 07/17/19 01:24 ALT 9 Units/L (7-52) 07/17/19 01:24 Alkaline Phosphatase 88 Units/L (34-104) 07/17/19 01:24 B-Natriuretic Peptide 41 pg/mL (Less than 100) 07/17/19 01:24 Serum Total Protein 6.8 g/dL (6.4-8.9) 07/17/19 01:24 Albumin 3.2 g/dL (3.5-5.7) L 07/17/19 01:24 Globulin 3.6 g/dL (2.4-3.5) H 07/17/19 01:24 Albumin/Globulin Ratio 0.9 (1.1-2.2) L 07/17/19 01:24 Specimen Rejected Hemolyzed 07/18/19 04:16 - Imaging EKG: report reviewed (04/24/2019 SINUS RHYTHM RIGHT BUNDLE BRANCH BLOCK [120+ ms QRS DURATION, UPRIGHT V1, 40+ ms S IN I/aVL/V4/V5/V6]) Anesthesia Exam Vital Signs/O2 Sat/Glucose, Most Recent Temp Pulse Resp BP Pulse Ox 99.0 F 113 16 118/64 98 07/18/19 14:27 07/18/19 14:27 07/18/19 15:22 07/18/19 14:27 07/18/19 15:22 Blood Glucose* 171 Weight: 97 kg - BMI 39 NPO (# of Hours): 8 Pain Scale: 0 Pain Scale Used: Numeric (1 - 10) - HEENT Pupil (Motor): EOMI Mallampati: II Teeth: Edentulous Oral Opening: Greater than 3 - Cardiac Rhythm: Regular - Pulmonary Breath Sounds: bilateral Clear Anesthesia Assess/Plan ASA Score: 4 Level of consciousness: Cooperative, Oriented, Tranquil Anesthetic Plan: General, MAC Monitoring Plan: Standard Monitors Recovery Plan: PACU (phase 2 if appropriate)
[2019-07-18] MEDS: Ascorbic Acid 500 MG TABLET PO SCH (16:04)
[2019-07-18] MEDS: Insulin DETEMIR 100 UNIT/ML X5UNITS SQ SCH (19:59)
[2019-07-18] MEDS: Artificial Tears SOLN 15 ML BOTTLE OP SCH (19:59)
[2019-07-18] MEDS: Pregabalin 25 MG CAPSULE PO SCH (20:00)
[2019-07-18] MEDS: ALPRAZolam 0.25 MG TABLET PO SCH (20:00)
[2019-07-18] MEDS: Sennosides/Docusate Sodium TABLET PO SCH (20:00)
[2019-07-18] MEDS ORDERED: Melatonin 3 MG TABLET PO SCH (21:00)
[2019-07-19] MEDS: Ipratropium/Albuterol Neb 3 ML IH SCH ×2 (03:31→10:37)
[2019-07-19] MEDS ORDERED: NON-FORMULARY MEDICATION 1 EACH EACH (Ondansetron Hcl [Zofran] 4 MG) PO PRN (08:04)
[2019-07-19] MEDS: Thiamine (B-1) 100 MG TABLET PO SCH (09:35)
[2019-07-19] MEDS: cloNIDine HCl 0.1 MG TABLET PO SCH (09:35)
[2019-07-19] MEDS: Pregabalin 25 MG CAPSULE PO SCH (09:35)
[2019-07-19] MEDS: Sennosides/Docusate Sodium TABLET PO SCH (09:36)
[2019-07-19] MEDS: Furosemide 20 MG TABLET PO SCH (09:36)
[2019-07-19] MEDS: Ascorbic Acid 500 MG TABLET PO SCH (09:36)
[2019-07-19] MEDS: NIFEdipine XL (24 HR) 30 MG TAB.ER.24 PO SCH (09:36)
[2019-07-19] MEDS: ALPRAZolam 0.25 MG TABLET PO SCH (09:36)
[2019-07-19] MEDS: Lisinopril 20 MG TABLET PO SCH (09:37)
[2019-07-19] MEDS: Famotidine 20 MG TABLET PO SCH (09:37)
[2019-07-19] MEDS: Artificial Tears SOLN 15 ML BOTTLE OP SCH (09:37)
[2019-07-19] MEDS: *HR* Heparin 5,000 UNIT/ML VIAL SQ SCH (09:37)
[2019-07-19] MEDS: hydrALAZINE 10 MG TABLET PO SCH ×2 (09:40→13:11)
[2019-07-19] MEDS: Insulin DETEMIR 100 UNIT/ML X5UNITS SQ SCH (09:40)
[2019-07-19] MEDS: Insulin LISPRO 300 UNITS/3 ML VIAL SQ SCH ×2 (09:40→13:15)
--- NOTE | 2019-07-19 11:26 | Discharge Summary ---
- NOTES TO OUTPATIENT PROVIDER Notes to Outpatient Provider: f/u with PCP within a week. f/u with GI within 3- 4 weeks. Orders not resulted at time of discharge: Pending orders 07/18/19 16:11 Surgical Pathology [PTH] Routine Date of Encounter: 07/19/19 Time of Encounter: 11:21 - Discharge Diagnosis (1) Dysphagia Priority: Primary Status: Acute Qualifiers: Dysphagia type: oropharyngeal phase Qualified Code(s): R13.12 - Dysphagia, oropharyngeal phase (2) History of CVA (cerebrovascular accident) Priority: Secondary Status: Chronic (3) Hypothyroid Priority: Secondary Status: Chronic Qualifiers: Hypothyroidism type: unspecified Qualified Code(s): E03.9 - Hypothyroidism, unspecified (4) HTN (hypertension), benign Priority: Secondary Status: Chronic (5) Diabetes Priority: Secondary Status: Chronic Qualifiers: Diabetes mellitus type: type 2 Diabetes mellitus senior living insulin use: without vermin exterminator use Diabetes mellitus complication detail: with chronic kidney disease Chronic kidney disease stage: unspecified stage Qualified Code(s): E11.22 - Type 2 diabetes mellitus with diabetic chronic kidney disease (6) DVT prophylaxis Priority: Primary Status: Chronic (7) CHF (congestive heart failure) Priority: Secondary Status: Chronic Qualifiers: Heart failure type: unspecified Heart failure chronicity: unspecified Qualified Code(s): I50.9 - Heart failure, unspecified (8) Aspiration into airway Priority: Primary Status: Ruled-out Qualifiers: Encounter type: initial encounter Qualified Code(s): T17.908A - Unspecified foreign body in respiratory tract, part unspecified causing other injury, initial encounter Hospital course: Ms. Penny is a 73 year old female with a past medical history of COPD on 3 L nasal cannula, hypertension, CHF, type 2 diabetes and history of CVA with residual right-sided deficits who initially presented to [facility] due to concern of food stuck in her throat. Patient states that around lunch she was eating a potato, took a large bright which felt like it got stuck in her throat. Patient reports prior history to of dysphagia following her stroke 2 years ago. She says that she has had a swallow evaluation done and was placed on nectar thickened liquids but could not tolerate certain liquids and this form, especially coffee. Laboratory workup notable for a leukocytosis of 18 and anemia which appears to be chronic. CT of the soft tissues of the neck performed at [facility] concerning for findings of food impaction within the esophagus and trachea. EGD was performed on 07/16 which revealed a benign circular esophageal stenosis, and mild gastritis. A neck soft tissue CT was repeated after the procedure which redemonstrated food impaction within the proximal part of the esophagus. GI was called, EGD was repeated on 07/18, a benign Schatzki ring was identified at the GE junction, which was dilated, moderate inflammatory change noted on the duodenum, biopsy was obtained. On the second day of the procedure, patient reported improved dysphagia and resolution of feeling food stuck in the throat. Patient will be discharged back to [facility] today, Plavix will be on hold for 3 more days and then resume, she will continue to take PPI, follow-up with PCP and GI as scheduled. Discharge discussed with: patient Time spent discussing smoking cessation with patient: more than 10 minutes - Time Spent with Patient Total time spent providing and/or coordinating discharge services: Time spent: Greater than 30 minutes - Discharge Medications Prescriptions: New Omeprazole [PriLOSEC] 40 mg PO DAILY #30 cap Continued Ezetimibe [Zetia] 10 mg PO 0800 Tizanidine HCl 4 mg PO Q8H PRN PRN Reason: Muscle Spasms Docusate [Colace] 100 mg PO 0800 cloNIDine HCl [Clonidine HCl] 0.2 mg PO 0800,2000 Citalopram Hydrobromide [Citalopram HBr] 20 mg PO 0800 Atorvastatin [Lipitor] 40 mg PO 2000 diphenhydrAMINE HCl [Sleep Aid] 25 mg PO Q6H PRN PRN Reason: Itching Acetaminophen [Non-Aspirin] 650 mg PO Q4H PRN PRN Reason: PAIN/FEVER Albuterol Sulfate [Ventolin Hfa] 2 puff PO Q6H PRN PRN Reason: Shortness Of Breath Mometasone Furoate [Elocon] 1 appl TP BID PRN PRN Reason: RASH/PURITIS ALPRAZolam [Xanax 0.25 MG Tablet] 0.25 mg PO 0800,2000 Ascorbate Calcium [Vitamin C] 500 mg PO 0800,1700 Furosemide [Lasix] 20 mg PO 0800 hydrALAZINE [HydrALAZINE] 10 mg PO 0800,1200,1600 Insulin Glargine,Hum.rec.anlog [Basaglar Kwikpen U-100] 20 unit SQ BID Insulin LISPRO [HumaLOG] 0 - 12 unit SQ ACHS Ipratropium/Albuterol Sulfate [Iprat-Albut 0.5-3(2.5) mg/3 ml] 3 ml IH BID PRN PRN Reason: SOB/WHEEZING Ipratropium/Albuterol Sulfate [Iprat-Albut 0.5-3(2.5) mg/3 ml] 3 ml IH 0800,1199,1999 Levocetirizine Dihydrochloride [Allergy Relief (Xyzal)] 2.5 mg PO 0800 Levothyroxine Sodium 125 mcg PO 0600 Lisinopril [Zestril] 20 mg PO 0800,1999 Melatonin 5 mg PO 1999 NIFEdipine XL (24 HR) [Procardia XL] 30 mg PO 0800 Nitroglycerin [Nitrostat] 0.4 mg SL AD PRN PRN Reason: Chest Pain Ondansetron HCl [Zofran] 4 mg PO Q6H PRN PRN Reason: Nausea And Vomiting Oxybutynin Chloride [Oxybutynin Chloride ER] 10 mg PO 0800 Polyethylene Glycol 3350 [MiraLAX] 17 gm PO 0800 Polyvinyl Alcohol [Artificial Tears] 2 drop OP 799,1999 Potassium Chloride [Klor-Con 10] 10 meq PO Q48H Pregabalin [Lyrica] 25 mg PO 799,1999 Sennosides/Docusate Sodium [Senna-S Tablet] 1 tab PO Thiamine (B-1) [Vitamin B-1] 100 mg PO 0800 Clopidogrel [Plavix] 75 mg PO 0800 #0 Discontinued Ranitidine HCl [Acid Package Crimper] 150 mg PO 799,1999 Home Medications: Acetaminophen [Non-Aspirin] 650 mg PO Q4H PRN 10/09/18 [History] Albuterol Sulfate [Ventolin Hfa] 2 puff PO Q6H PRN 10/09/18 [History] Atorvastatin [Lipitor] 40 mg PO 199910/09/18 [History] Citalopram Hydrobromide [Citalopram HBr] 20 mg PO 0800 10/09/18 [History] Docusate [Colace] 100 mg PO 0800 10/09/18 [History] Ezetimibe [Zetia] 10 mg PO 0800 10/09/18 [History] Mometasone Furoate [Elocon] 1 appl TP BID PRN 10/09/18 [History] Tizanidine HCl 4 mg PO Q8H PRN 10/09/18 [History] cloNIDine HCl [Clonidine HCl] 0.2 mg PO 0800,199910/09/18 [History] diphenhydrAMINE HCl [Sleep Aid] 25 mg PO Q6H PRN 10/09/18 [History] ALPRAZolam [Xanax 0.25 MG Tablet] 0.25 mg PO 0800,199907/17/19 [History] Ascorbate Calcium [Vitamin C] 500 mg PO 0800,1700 07/17/19 [History] Furosemide [Lasix] 20 mg PO 0800 07/17/19 [History] Insulin Glargine,Hum.rec.anlog [Basaglar Kwikpen U-100] 20 unit SQ BID 07/17/19 [History] Insulin LISPRO [HumaLOG] 0 - 12 unit SQ ACHS 07/17/19 [History] Ipratropium/Albuterol Sulfate [Iprat-Albut 0.5-3(2.5) mg/3 ml] 3 ml IH 0800,1200,199907/17/19 [History] Ipratropium/Albuterol Sulfate [Iprat-Albut 0.5-3(2.5) mg/3 ml] 3 ml IH BID PRN 07/17/19 [History] Levocetirizine Dihydrochloride [Allergy Relief (Xyzal)] 2.5 mg PO 0800 07/17/19 [History] Levothyroxine Sodium 125 mcg PO 0607/17/19 [History] Lisinopril [Zestril] 20 mg PO 0800,199907/17/19 [History] Melatonin 5 mg PO 199907/17/19 [History] NIFEdipine XL (24 HR) [Procardia XL] 30 mg PO 0800 07/17/19 [History] Nitroglycerin [Nitrostat] 0.4 mg SL AD PRN 07/17/19 [History] Ondansetron HCl [Zofran] 4 mg PO Q6H PRN 07/17/19 [History] Oxybutynin Chloride [Oxybutynin Chloride ER] 10 mg PO 0800 07/17/19 [History] Polyethylene Glycol 3350 [MiraLAX] 17 gm PO 0800 07/17/19 [History] Polyvinyl Alcohol [Artificial Tears] 2 drop OP 08,199907/17/19 [History] Potassium Chloride [Klor-Con 10] 10 meq PO Q48H 07/17/19 [History] Pregabalin [Lyrica] 25 mg PO 0800,199907/17/19 [History] Sennosides/Docusate Sodium [Senna-S Tablet] 1 tab PO 0800,199907/17/19 [His tory] Thiamine (B-1) [Vitamin B-1] 100 mg PO 0800 07/17/19 [History] hydrALAZINE [HydrALAZINE] 10 mg PO 0800,1200,1600 07/17/19 [History] Clopidogrel [Plavix] 75 mg PO 0800 #0 07/19/19 [Rx] Omeprazole [PriLOSEC] 40 mg PO DAILY #30 cap 07/19/19 [Rx] Allergies/Adverse Reactions: Allergy/AdvReac Type Severity Reaction Status Date / Time oxycodone [Oxycodone] Allergy Itching Verified 04/24/19 15:53 Sulfa (Sulfonamide Allergy Itching Verified 04/24/19 15:53 Antibiotics) Date of admission: 07/18/19 15:28 Primary care physician: Keyon Arredondo MD Consults: 07/18/19 09:44 Consult to Clearance Coordinator [CONS] Routine Reason for SW Consult: PATIENT FROM [facility] IN [facility] date of discharge: 07/19/19 - Constitutional Vitals: Temp Pulse Resp BP Pulse Ox 98.6 F 88 16 117/72 99 07/19/19 07:05 07/19/19 07:05 07/19/19 07:05 07/19/19 07:05 07/19/19 07:05 General appearance: Present: A&O X 3 Exam: General: Alert and oriented 3 Skin:Normal color, no rash, no lesions. HEENT:EOM, pupils equal, round and reactive. Cardiovascular:Normal S1 & S2, no rubs, murmurs or gallops. No JVD. Pulse regular. Lungs:Normal breath sounds, no wheezes or crackles. Abdomen:Soft, non-tender, no rigidity. Extremities:No deformity, no edema or tenderness, no joint swelling or clubbing. Neurological:Normal cognition and motor skills. 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 Rest of the physical exam is non contributory - Patient Status Disposition: Transfer SNF Condition: Fair Functional capacity at discharge: wheelchair bound Overall status at discharge: patient is progressing back to baseline - Discharge Instructions Follow Up With: Keyon Arredondo MD [Primary Care Provider] - - Diet and Activity Activity: increase activity as tolerated Diet: diabetic diet, low fat, low cholesterol, low salt diet (pureed and honey thick liquid, advance diet after being re-evaluated by speech therapy.)
--- NOTE | 2019-07-19 11:35 | Physician Discharge Referral ---
ExtendedCare Referral Info Provider in Charge after Transfer: PCP, Other Institutional Level of Care: Skilled - Diagnosis (1) Dysphagia Priority: Primary Status: Acute (2) History of CVA (cerebrovascular accident) Priority: Secondary Status: Chronic (3) Hypothyroid Priority: Secondary Status: Chronic (4) HTN (hypertension), benign Status: Chronic (5) Diabetes Status: Chronic (6) DVT prophylaxis Priority: Primary Status: Chronic (7) CHF (congestive heart failure) Priority: Secondary Status: Chronic (8) Aspiration into airway Priority: Primary Status: Ruled-out Prognosis: Fair Aware of Diagnosis: Patient Aware of Prognosis: Patient - Transfer Medications Prescriptions: Omeprazole [PriLOSEC] 40 mg PO DAILY #30 cap Home Medications: Acetaminophen [Non-Aspirin] 650 mg PO Q4H PRN 10/09/18 [History] Albuterol Sulfate [Ventolin Hfa] 2 puff PO Q6H PRN 10/09/18 [History] Atorvastatin [Lipitor] 40 mg PO 199910/09/18 [History] Citalopram Hydrobromide [Citalopram HBr] 20 mg PO 0800 10/09/18 [History] Docusate [Colace] 100 mg PO 0800 10/09/18 [History] Ezetimibe [Zetia] 10 mg PO 0800 10/09/18 [History] Mometasone Furoate [Elocon] 1 appl TP BID PRN 10/09/18 [History] Tizanidine HCl 4 mg PO Q8H PRN 10/09/18 [History] cloNIDine HCl [Clonidine HCl] 0.2 mg PO 0800,199910/09/18 [History] diphenhydrAMINE HCl [Sleep Aid] 25 mg PO Q6H PRN 10/09/18 [History] ALPRAZolam [Xanax 0.25 MG Tablet] 0.25 mg PO 0800,199907/17/19 [History] Ascorbate Calcium [Vitamin C] 500 mg PO 0800,1700 07/17/19 [History] Furosemide [Lasix] 20 mg PO 0800 07/17/19 [History] Insulin Glargine,Hum.rec.anlog [Basaglar Kwikpen U-100] 20 unit SQ BID 07/17/19 [History] Insulin LISPRO [HumaLOG] 0 - 12 unit SQ ACHS 07/17/19 [History] Ipratropium/Albuterol Sulfate [Iprat-Albut 0.5-3(2.5) mg/3 ml] 3 ml IH 0800,1200,199907/17/19 [History] Ipratropium/Albuterol Sulfate [Iprat-Albut 0.5-3(2.5) mg/3 ml] 3 ml IH BID PRN 07/17/19 [History] Levocetirizine Dihydrochloride [Allergy Relief (Xyzal)] 2.5 mg PO 0800 07/17/19 [History] Levothyroxine Sodium 125 mcg PO 0600 07/17/19 [History] Lisinopril [Zestril] 20 mg PO 0800,199907/17/19 [History] Melatonin 5 mg PO 199907/17/19 [History] NIFEdipine XL (24 HR) [Procardia XL] 30 mg PO 0800 07/17/19 [History] Nitroglycerin [Nitrostat] 0.4 mg SL AD PRN 07/17/19 [History] Ondansetron HCl [Zofran] 4 mg PO Q6H PRN 07/17/19 [History] Oxybutynin Chloride [Oxybutynin Chloride ER] 10 mg PO 0800 07/17/19 [History] Polyethylene Glycol 3350 [MiraLAX] 17 gm PO 0800 07/17/19 [History] Polyvinyl Alcohol [Artificial Tears] 2 drop OP 0800,199907/17/19 [History] Potassium Chloride [Klor-Con 10] 10 meq PO Q48H 07/17/19 [History] Pregabalin [Lyrica] 25 mg PO 0800,199907/17/19 [History] Sennosides/Docusate Sodium [Senna-S Tablet] 1 tab PO 0800,199907/17/19 [History] Thiamine (B-1) [Vitamin B-1] 100 mg PO 0800 07/17/19 [History] hydrALAZINE [HydrALAZINE] 10 mg PO 0800,1200,1600 07/17/19 [History] Clopidogrel [Plavix] 75 mg PO 0800 #0 07/19/19 [Rx] Omeprazole [PriLOSEC] 40 mg PO DAILY #30 cap 07/19/19 [Rx] Allergies/Adverse Reactions: Allergy/AdvReac Type Severity Reaction Status Date / Time oxycodone [Oxycodone] Allergy Itching Verified 04/24/19 15:53 Sulfa (Sulfonamide Allergy Itching Verified 04/24/19 15:53 Antibiotics) - Respiratory Orders Smoking Cessation: Smoking cessation has been advised. For more information, call the [place] Tobacco Quit Line at 0-109-NCVU-NOW. - Advance Directives Code Status: Full Code CERTIFICATION: I certify that the transfer of the above named patient to an Extended Care Facility is necessary for the continuing treatment of the diagnosis listed. The above information is true and accurate reflection of patient's current condition. Confidential - Redisclosure prohibited without a patient's written consent.
[2019-07-19 15:25] VITALS: BP 103/62
[2019-07-20] MEDS ORDERED: NON-FORMULARY MEDICATION 1 EACH EACH (Ezetimibe [Zetia] 10 MG) PO SCH (08:00)
== END 2019-07-19 15:59 | DRG 392 ==
LOC: 3BNU
PROVIDERS: ADMIT Internal Medicine; ATTEND Internal Medicine
PROC: ENDOEDS (2019-07-18 17:00)